=== PATIENT | female | born 1955 | race Caucasian/White ===

== ENCOUNTER 2016-10-01 19:56 | Outpatient (CLI) | payer OTHER | END 2016-10-01 19:57 | disposition EMS.NT | LOC: EMS 19:56 | PROVIDERS: ATTEND Surgery | DX: R03.0 Elevated blood-pressure reading, without diagnosis of hypertension (principal) ==

== ENCOUNTER 2016-10-01 20:34 | Emergency (ER) | payer OTHER ==
--- NOTE | 2016-10-01 21:31 | ED Physician Documentation ---
History of Present Illness - Stated complaint Stated Complaint: BLOOD PRESSURE - Chief complaint Chief Complaint: Cardiac - History obtained from History obtained from: Patient, Family - History of Present Illness Timing: Unknown Pain level max: 0 Pain level now: 0 Improved by: nothing Worsened by: stress - Additonal information Additional information: Patient is a 61-year-old female who recently moved here from [facility]. She states she has been under a lot of stress at home recently. Has noticed her blood pressures have been more elevated than usual. She denies any symptoms. No headache, no dizziness, no focal neurological deficits, no visual changes, no chest pain, no shortness of breath. Review of Systems Constitutional: denies: Fever, Chills Eyes: denies: Decreased vision, Photophobia Throat: denies: Sore throat Cardiac: denies: Chest pain / pressure, Palpitations Respiratory: denies: Cough, Hemoptysis GI: denies: Nausea, Vomiting Skin: denies: Rash Musculoskeletal: denies: Neck pain, Back pain Neurologic: denies: Focal weakness, Numbness, Confused, Altered mental status, Headache PD PAST MEDICAL HISTORY - Past Medical History Past Medical History: Yes Cardiovascular: Hypertension Endocrine/Autoimmune: HyPOthyroidism - Present Medications Home Medications: Ambulatory Orders Medication Instructions Recorded Confirmed Cholestyramine [Questran] 4 gm PO DAILY 10/01/16 10/01/16 Irbesartan 150 mg PO DAILY 10/01/16 10/01/16 Levothyroxine Sodium [Synthroid] 100 mcg PO DAILY 10/01/16 10/01/16 Sertraline HCl 100 mg PO DAILY 10/01/16 10/01/16 Tolterodine Tartrate [Tolterodine 4 mg PO DAILY 10/01/16 10/01/16 Tartrate ER] hydroCHLOROthiazide [Hydrodiuril] 25 mg PO DAILY 10/01/16 10/01/16 - Allergies Allergies/Adverse Reactions: Allergies Allergy/AdvReac Type Severity Reaction Status Date / Time morphine Allergy Anaphylaxis Verified 10/01/16 20:48 codeine AdvReac Nausea Verified 10/01/16 20:48 - Social History Does the pt smoke?: No Smoking Status: Never smoker PD ED PE NORMAL - Vitals Vital signs reviewed: Yes - General General: Alert and oriented X 3, No acute distress, Well developed/nourished - HEENT HEENT: PERRL, EOMI, Moist mucous membranes - Neck Neck: Supple, no meningeal sign - Cardiac Cardiac: RRR, No murmur, Strong equal pulses - Respiratory Respiratory: No respiratory distress, Clear bilaterally - Abdomen Abdomen: Soft, Non tender, Non distended - Derm Derm: Warm and dry - Extremities Extremities: No edema - Neuro Neuro: Alert and oriented X 3, 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 We will have her follow-up with her doctor for further evaluation and care of her blood pressure. Patient and are comfortable with this plan. Patient and family counseled regarding signs and symptoms for which I believe and urgent re-evaluation would be necessary. Patient with good understanding of and agreement to plan and is comfortable going home at this time This document was made in part using voice recognition software. While efforts are made to proofread this document, sound alike and grammatical errors may occur. Departure - Departure Disposition: 01 Home, Self Care Clinical Impression: Hypertension Qualifiers: Hypertension type: essential hypertension Qualified Code(s): I10 - Essential ( primary) hypertension Condition: Good Instructions: ED HTN Established Follow-Up: Flores Caldwell MD [Primary Care Provider] - Within 1 week Comments: Return if you worsen. Return if you develop chest pain, shortness of breath, weakness, visual changes. Keep a log of your blood pressures at home, take it once a day and share this with your doctor. Discharge Date/Time: 10/01/16 21:50
[2016-10-01 21:50] VITALS: BP 173/109
== END 2016-10-01 21:50 | disposition home or self-care (01) ==
LOC: ED 20:34
DX: I10 Essential (primary) hypertension (principal)
CPT/HCPCS: 99282; 99283

== ENCOUNTER 2016-10-28 08:08 | Outpatient (CLI) | payer OTHER ==
--- NOTE | 2016-10-28 16:08 | DEXA Report ---
DEXA SCAN: 10/28/2016 CLINICAL INDICATION: Postmenopausal osteoporosis. TECHNIQUE: Dual energy x-ray absorptiometry (DXA) was performed on a DJZ system. Regions measured are the AP spine, femoral neck, and, if needed, forearm. COMPARISON: None. In accordance with the International Society for Clinical Densitometry (ISCD) guidelines, data from previous exams may be reanalyzed using current recommendations and techniques. This is done to allow a more accurate basis for comparison with the current study. FINDINGS: The data for the lumbar spine is as follows: REGION BMD (g/cm/cm) T-SCORE Z-SCORE L1 0.900 -1.9 -1.7 L2 0.906 -2.5 -2.2 L3 0.929 -2.3 -2.0 L4 1.085 -1.0 -0.7 TOTAL 0.963 -1.8 -1.6 NOTE: All evaluable vertebrae are used for classification. The data for the hip is as follows: REGION BMD (g/cm/cm) T-SCORE Z-SCORE Neck 0.731 -2.2 -1.6 TOTAL 0.653 -2.8 -2.6 NOTE: The femoral neck or total proximal femur, whichever is lowest, is used for classification. * Denotes significant change at the 95% confidence level. Denotes dissimilar scan types or analysis methods. IMPRESSION: THE WHO CLASSIFICATION BASED ON THE INTERNATIONAL REFERENCE STANDARD IS OSTEOPOROSIS. THE FRACTURE RISK IS HIGH. RECOMMENDATION: Patients with diagnosis of osteoporosis or osteopenia should have regular bone mineral density assessment. For those eligible for Medicare, routine testing is allowed once every 2 years. Testing frequency can be increased for patients who have rapidly progressing disease or for those who are receiving medical therapy to restore bone mass. COMMENT: World Health Organization (WHO) definitions for osteoporosis and osteopenia: NORMAL BMD: T-score at -1.0 or higher, fracture risk is low. OSTEOPENIA BMD: T-score between -1.0 and -2.5, fracture risk is increased. OSTEOPOROSIS BMD: T-score at -2.5 or lower, fracture risk high. National Osteoporosis Foundation recommends: 1. Obtain adequate dietary calcium (at least 1200 mg per day) and vitamin D (400 -800 international units per day). 2. Participate, as appropriate, in regular weightbearing and muscle- strengthening exercise. 3. Avoid tobacco use and reduce alcohol and caffeine intake. 4. For more detailed information see the website at www.NOF.org. MTDD
== END 2016-10-28 08:09 | disposition home or self-care (01) ==
LOC: DI 08:08
PROVIDERS: ATTEND Internal Medicine
DX: M81.0 Age-related osteoporosis without current pathological fracture (principal)
CPT/HCPCS: 77080

== ENCOUNTER 2016-10-28 08:09 | Outpatient (CLI) | payer OTHER ==
--- NOTE | 2016-10-28 12:56 | Ultrasound Report ---
AORTA SCREEN: 10/28/2016 CLINICAL INDICATION: Hypertension. TECHNIQUE: Real-time scanning was performed with enrollment eligibility representative static images obtained. FINDINGS: The abdominal aorta is normal in caliber, measuring 2.4 cm proximally, 2.6 cm in the mid p ortion, and 1.9 cm distally. The iliacs are not dilated. No free fluid is present. IMPRESSION: NO EVIDENCE OF ABDOMINAL AORTIC ANEURYSM. JOB #: [id number] EXT JOB #:[id number]
== END 2016-10-28 08:10 | disposition home or self-care (01) ==
LOC: DI 08:09
PROVIDERS: ATTEND Internal Medicine
DX: Z13.6 Encounter for screening for cardiovascular disorders (principal); I10 Essential (primary) hypertension; M81.0 Age-related osteoporosis without current pathological fracture
CPT/HCPCS: 76706; 77080

== ENCOUNTER 2017-08-18 10:55 | Outpatient (CLI) | payer OTHER ==
--- NOTE | 2017-08-23 12:00 | Mammography Report ---
DIGITAL SCREENING MAMMOGRAPHY: 08/18/2017 HISTORY: No history of breast surgery, hormone therapy, family or personal history of breast cancer. COMPARISON: 04/25/2013 and 03/12/2010. TECHNIQUE: Bilateral digital CC and MLO projections are performed. FINDINGS: There are scattered fibroglandular densities. In the upper outer quadrant of the right breast, there are some loosely clustered faint microcalcifications for which magnification views are suggested. In the 12 o'clock position of the left breast, there are 2-3 microcalcifications with an area of possible architectural distortion for which spot compression and magnification views are suggested. No skin thickening noted. IMPRESSION: ADDITIONAL VIEWS OF BOTH BREASTS ARE SUGGESTED DETAILED ABOVE. BI-RADS CATEGORY 0 - NEEDS ADDITIONAL IMAGING EVALUATION. STANDARD QUALIFYING STATEMENTS: 1. This examination was reviewed with the aid of Computer-Aided Detection (CAD). 2. A negative or benign imaging report should not delay biopsy if clinically suspicious findings are present. Consider surgical consultation if warranted. More than 5% of cancers are not identified by imaging. 3. Dense breasts may obscure an underlying neoplasm. TD: 08/23/2017 11:59
== END 2017-08-18 10:56 | disposition home or self-care (01) ==
LOC: DI 10:55
PROVIDERS: ATTEND Internal Medicine
DX: Z12.31 Encounter for screening mammogram for malignant neoplasm of breast (principal); R92.0 Mammographic microcalcification found on diagnostic imaging of breast; Z80.3 Family history of malignant neoplasm of breast
CPT/HCPCS: 77067

== ENCOUNTER 2017-09-14 10:43 | Outpatient (CLI) | payer OTHER ==
--- NOTE | 2017-09-14 14:17 | Mammography Report ---
DIAGNOSTIC DIGITAL BILATERAL MAMMOGRAM: 09/14/2017. CLINICAL INDICATION: Calcifications and possible architectural distortion. TECHNIQUE: Bilateral true lateral and spot magnification views. COMPARISON: 08/18/2017, 04/25/2013, 03/12/2010. FINDINGS: The breasts demonstrate heterogeneously dense fibroglandular parenchyma bilaterally. The calcifications in the left upper central breast are a mix of punctate calcifications and milk of calcium. The possible architectural distortion seen on screening dissipates on additional compression. No underlying mass lesion or architectural distortion persists. The calcifications in the right upper outer quadrant are punctate on spot magnification views. No significant pleomorphism is appreciated on either side. IMPRESSION: PROBABLE BENIGN CALCIFICATIONS. RESOLUTION OF THE POSSIBLE ARCHITECTURAL DISTORTION ON THE LEFT BREAST. RECOMMENDATION: Diagnostic bilateral mammogram in 6 months, to assure stability. BIRADS CATEGORY 3 - PROBABLE BENIGN FINDINGS. STANDARD QUALIFYING STATEMENTS 1. This examination was reviewed with the aid of Computed Aided Detection (CAD). 2. A negative x-ray report should not delay biopsy if a dominant or clinically suspicious mass is present. More than 5% of cancers are not identified by x-ray. 3. Dense breasts may obscure an underlying neoplasm. TD: 09/14/2017 14:16 FLORENCIO
== END 2017-09-14 10:44 | disposition home or self-care (01) ==
LOC: DI 10:43
PROVIDERS: ATTEND Internal Medicine
DX: R92.2 Inconclusive mammogram (principal)
CPT/HCPCS: 77066

== ENCOUNTER 2017-12-15 17:07 | Emergency (ER) | payer OTHER ==
[2017-12-15 17:31] LABS: BILIRUBIN,URINE NEGATIVE (NEGATIVE); GLUCOSE, URINE (UA) NEGATIVE (NEGATIVE); KETONES,URINE (UA) NEGATIVE (NEGATIVE); LEUKOCYTE ESTERASE, URINE NEGATIVE (NEGATIVE); NITRITE,URINE NEGATIVE (NEGATIVE); OCCULT BLOOD,URINE NEGATIVE (NEGATIVE); PROTEIN,URINE NEGATIVE (NEGATIVE); UROBILINOGEN,URINE 0.2 (NORMAL) E.U./dL (NORMAL)
[2017-12-15 17:40] LABS: CLARITY,URINE CLEAR (CLEAR)
--- NOTE | 2017-12-15 17:48 | ED Physician Documentation ---
History of Present Illness - Stated complaint Stated Complaint: GLF - Chief complaint Chief Complaint: General - History obtained from History obtained from: Patient - History of Present Illness Timing: Other (About 4 days ago she tripped over her cat and hit multiple pieces of furniture on the way down. She did hit her head but has no headache, though spot this persistently bothering her is the right flank radiating to the right upper quadrant which is actually worsening. She has noted no hematuria.) Review of Systems Constitutional: denies: Fever, Chills Cardiac: denies: Chest pain / pressure, Pedal edema, Calf pain Respiratory: denies: Dyspnea, Cough, Hemoptysis, Wheezing GI: denies: Nausea, Diarrhea : denies: Dysuria, Frequency, Hesitancy, Incontinent PD PAST MEDICAL HISTORY - Past Medical History Cardiovascular: Hypertension Endocrine/Autoimmune: HyPOthyroidism - Present Medications Home Medications: Ambulatory Orders Medication Instructions Recorded Confirmed Irbesartan 150 mg PO DAILY 10/01/16 10/01/16 Levothyroxine Sodium [Synthroid] 100 mcg PO DAILY 10/01/16 10/01/16 Sertraline HCl 100 mg PO DAILY 10/01/16 10/01/16 Tolterodine Tartrate [Tolterodine 4 mg PO DAILY 10/01/16 10/01/16 Tartrate ER] hydroCHLOROthiazide [Hydrodiuril] 25 mg PO DAILY 10/01/16 10/01/16 - Allergies Allergies/Adverse Reactions: Allergies Allergy/AdvReac Type Severity Reaction Status Date / Time morphine Allergy Anaphylaxis Verified 12/15/17 17:15 codeine AdvReac Nausea Verified 12/15/17 17:15 - Social History Does the pt smoke?: No Smoking Status: Never smoker PD ED PE NORMAL - Vitals Vital signs reviewed: Yes - General General: Alert and oriented X 3, No acute distress - Neck Neck: Supple, no meningeal sign, No bony TTP - Cardiac Cardiac: RRR, No murmur - Respiratory Respiratory: No respiratory distress, Clear bilaterally - Abdomen Abdomen: Non tender - Back Back: Other (She is tender with bruising over the right CVA with some very low rib tenderness on the right, around #12. The area of bruise is about the size of the palm.) - Neuro Neuro: Alert and oriented X 3, Normal speech Results - Vitals Vitals: Vital Signs - 24 hr 12/15/17 12/15/17 17:08 18:06 Temperature 36.2 C L Heart Rate 75 51 L Respiratory 18 18 Rate Blood Pressure 123/78 68/38 L O2 Saturation 97 98 Oxygen O2 Source Room air - Labs Labs: Laboratory Tests 12/15/17 12/15/17 12/15/17 17:17 18:02 18:02 WBC 7.3 RBC 4.21 Hgb 13.5 Hct 40.0 MCV 95.0 MCH 32.0 H MCHC 33.7 RDW 12.9 Plt Count 291 MPV 9.1 Neut # (Auto) 3.8 Lymph # (Auto) 2.8 [place] # (Auto) 0.6 Eos # (Auto) 0.1 Baso # (Auto) 0.0 Absolute Nucleated RBC 0.00 Nucleated RBC % 0.0 Sodium 137 Potassium 3.6 Chloride 103 Carbon Dioxide 27 Anion Gap 7.0 BUN 20 Creatinine 0.7 Estimated GFR (MDRD) 85 L Glucose 97 Calcium 9.4 Total Bilirubin 0.8 AST 23 ALT 25 Alkaline Phosphatase 113 Total Protein 7.3 Albumin 4.2 Globulin 3.1 Albumin/Globulin Ratio 1.4 Lipase 24 Urine Color YELLOW Urine Clarity CLEAR Urine pH 6.0 Ur Specific [place] 1.010 Urine Protein NEGATIVE Urine Glucose (UA) NEGATIVE Urine Ketones NEGATIVE Urine Occult Blood NEGATIVE Urine Nitrite NEGATIVE Urine Bilirubin NEGATIVE Urine Urobilinogen 0.2 (NORMAL) Ur Leukocyte Esterase NEGATIVE Ur Microscopic Review NOT INDICATED Urine Culture Comments NOT INDICATED - Rads (name of study) CT A/P Radiology: EMP read contemporaneously (Some bruising, but no internal injuries.) PD MEDICAL DECISION MAKING - ED course ED course: Note made of a single blood pressure documented at 68/38, however with normal labs and this was not repeated it seems like a spurious value. - Sepsis Event Vital Signs: Vital Signs - 24 hr 12/15/17 12/15/17 17:08 18:06 Temperature 36.2 C L Heart Rate 75 51 L Respiratory 18 18 Rate Blood Pressure 123/78 68/38 L O2 Saturation 97 98 Oxygen O2 Source Room air Departure - Departure Disposition: 01 Home, Self Care Clinical Impression: Contusion of flank Qualifiers: Encounter type: initial encounter Qualified Code(s): S30.1XXA - Contusion of abdominal wall, initial encounter Condition: Good Record reviewed to determine appropriate education?: Yes Instructions: ED Contusion Soft Tissue Comments: Waylonenol or ibuprofen as needed for pain, return if worsening or if new symptoms develop.
[2017-12-15 18:24] LABS: BASOPHILS % (AUTO) 0.5 %; EOSINOPHILS # (AUTO) 0.1 10^3/uL (0.0-0.7); EOSINOPHILS % (AUTO) 1.3 %; HGB - HEMOGLOBIN 13.5 g/dL (12.0-16.0); LYMPHOCYTES # (AUTO) 2.8 10^3/uL (1.5-3.5); LYMPHOCYTES % (AUTO) 38.6 %; MEAN CORPUSCULAR HGB CONC 33.7 g/dL (32.0-36.0); MEAN PLATELET VOLUME 9.1 fL (7.9-10.8); MONOCYTES # (AUTO) 0.6 10^3/uL (0.0-1.0); MONOCYTES % (AUTO) 7.6 %; NEUTROPHILS # (AUTO) 3.8 10^3/uL (1.5-6.6); PLT - PLATELET COUNT 291 10^3/uL (130-450); RED BLOOD COUNT 4.21 10^6/uL (4.20-5.40); RED CELL DISTRIBUTION WIDTH 12.9 % (12.0-15.0); WHITE BLOOD COUNT 7.3 x10^3/uL (4.8-10.8)
[2017-12-15] MEDS ORDERED: IOPAMIDOL-300 100 ML VIAL ONE (18:30)
[2017-12-15 18:34] LABS: ALBUMIN 4.2 g/dL (3.2-5.5); ALBUMIN/GLOBULIN RATIO 1.4 (1.0-2.2); BILIRUBIN,TOTAL 0.8 mg/dL (0.2-1.0); CALCIUM 9.4 mg/dL (8.5-10.3); CREATININE 0.7 mg/dL (0.4-1.0); TOTAL PROTEIN 7.3 g/dL (6.7-8.2)
[2017-12-15] MEDS ORDERED: IOPAMIDOL-300 100 ML VIAL IVP ONE (19:32)
--- NOTE | 2017-12-15 20:04 | CT Report ---
Procedure Date: 12/15/2017 Accession Number: [id number] / [id number] Procedure: CT - Abdomen/Pelvis W/ CPT Code: FULL RESULT: EXAM: CT ABDOMEN AND PELVIS EXAM DATE: 12/15/2017 07:30 PM. CLINICAL HISTORY: IV only, R flank trauma, ?retro hematoma, ?rib frx. Fall 5 nights ago. COMPARISONS: Retroperitoneal ultrasound 10/28/2016. TECHNIQUE: Routine helical CT imaging was performed through the abdomen and pelvis. IV contrast: 100 ML ISOVUE 300. Enteric contrast: No. Reconstructions: Coronal and sagittal. In accordance with CT protocol optimization, one or more of the following dose reduction techniques were utilized for this exam: automated exposure control, adjustment of mA and/or KV based on patient size, or use of iterative reconstructive technique. FINDINGS: Lung Bases: Unremarkable. Liver: 0.6 cm circumscribed rounded hypodensity suggesting a cyst in the lateral left hepatic lobe. Otherwise normal. Gallbladder/Bile Ducts: Unremarkable. Spleen: Normal. Pancreas: Normal. Adrenal Glands: Normal. Kidneys: 1.6 cm simple cyst lateral cortex lower pole right kidney. Left kidney unremarkable. No hydronephrosis. No perinephric fat stranding. Renal enhancement symmetric. No gross stones. Peritoneal Cavity/Bowel: Prominent fat in the inferior aspect of the posterior mediastinum. Unopacified stomach and small bowel are nondistended. Appendix is normal. There is a small amount of formed stool scattered in colon. There is no lymphadenopathy, ascites, or in the peritoneum. Pelvic Organs: Small volume bladder. Uterus surgically absent. No adnexal masses are identified. Vasculature: No aneurysms or other significant abnormality. Bones: 3 lag screws through the left femoral neck. Moderate degenerative disk disease L5-S1. Mild right L4-L5 and bilateral L5-S1 facet osteoarthritis. No fracture is identified. Visualized lower right ribs are intact. Other: There is minimal subcutaneous bruising over the upper right flank. IMPRESSION: 1. Minimal subcutaneous bruising over the upper right flank. 2. No fracture is identified. 3. No evidence of internal injury in the lower chest, abdomen, or pelvis. RADIA
[2017-12-15 20:22] VITALS: BP 149/86
== END 2017-12-15 20:22 | disposition home or self-care (01) ==
LOC: ED 17:07
DX: S30.1XXA Contusion of abdominal wall, initial encounter (principal); W01.190A Fall on same level from slipping, tripping and stumbling with subsequent striking against furniture, initial encounter; I10 Essential (primary) hypertension; E03.9 Hypothyroidism, unspecified
CPT/HCPCS: 36415; 74177; 80053; 81003; 83690; 85025; 99283; Q9967; 81001; 87086

== ENCOUNTER 2020-08-01 08:00 | Outpatient (CLI) | payer MEDICARE, OTHER ==
[2020-08-01 18:02] LABS: BASOPHILS % (AUTO) 0.4 %; EOSINOPHILS # (AUTO) 0.1 10^3/uL (0.0-0.7); EOSINOPHILS % (AUTO) 1.2 %; HCT - HEMATOCRIT 42.5 % (37.0-47.0); HGB - HEMOGLOBIN 13.7 g/dL (12.0-16.0); LYMPHOCYTES # (AUTO) 2.3 10^3/uL (1.5-3.5); LYMPHOCYTES % (AUTO) 40.3 %; MEAN CORPUSCULAR HEMOGLOBIN 31.4 pg (27.0-31.0); MEAN CORPUSCULAR HGB CONC 32.2 g/dL (32.0-36.0); MEAN CORPUSCULAR VOLUME 97.3 fL (81.0-99.0); MONOCYTES # (AUTO) 0.5 10^3/uL (0.0-1.0); MONOCYTES % (AUTO) 9.2 %; NEUTROPHILS # (AUTO) 2.7 10^3/uL (1.5-6.6); NEUTROPHILS % (AUTO) 48.7 %; PLT - PLATELET COUNT 329 10^3/uL (130-450); RED BLOOD COUNT 4.37 10^6/uL (4.20-5.40); RED CELL DISTRIBUTION WIDTH 13.1 % (12.0-15.0); WHITE BLOOD COUNT 5.6 x10^3/uL (4.8-10.8)
[2020-08-01 18:23] LABS: ALBUMIN 4.4 g/dL (3.2-5.5); ALBUMIN/GLOBULIN RATIO 1.7 (1.0-2.2); ALKALINE PHOSPHATASE 70 IU/L (42-121); ALT ALANINE AMINOTRANSFERASE 13 IU/L (10-60); AST ASPARTATE AMINOTRANSFERASE 16 IU/L (10-42); BILIRUBIN,TOTAL 0.6 mg/dL (0.2-1.0); BUN - BLOOD UREA NITROGEN 12 mg/dL (6-20); CALCIUM 9.4 mg/dL (8.5-10.3); CARBON DIOXIDE - CO2 26 mmol/L (21-32); CHLORIDE 99 mmol/L (101-111); CHOL/HDL RATIO 2.8 (<4.4); CHOLESTEROL 233 mg/dL; CREATININE 0.7 mg/dL (0.4-1.0); GFR - MDRD 84 (>89); GLUCOSE 94 mg/dL (70-100); HDL CHOLESTEROL 82 mg/dL; LDL CHOLESTEROL,CALCULATED 133 mg/dL; LDL/HDL RATIO 1.6 (<4.4); POTASSIUM 4.2 mmol/L (3.5-5.0); SODIUM 139 mmol/L (135-145); TRIGLYCERIDES 90 mg/dL; VLDL CHOLESTEROL 18 mg/dL
[2020-08-01 18:29] LABS: THYROID STIMULATING HORMONE 2.37 uIU/mL (0.34-5.60)
== END 2020-08-01 08:01 | disposition home or self-care (01) ==
LOC: LAB.WCP 08:00
PROVIDERS: ATTEND Physician Assistant Medical
DX: I10 Essential (primary) hypertension (principal); E03.9 Hypothyroidism, unspecified
CPT/HCPCS: 36415; 80053; 80061; 83721; 84443; 85025

== ENCOUNTER 2020-11-10 10:16 | Outpatient (CLI) | payer MEDICARE, OTHER ==
--- NOTE | 2020-11-11 14:26 | Mammography Report ---
BILATERAL DIGITAL DIAGNOSTIC MAMMOGRAM 3D/2D: 11/10/2020 CLINICAL: Patient returns for 6 month follow up on bilaeral breast calcifications. Comparison is made to exams dated: 09/14/2017 mammogram, 08/18/2017 mammogram, 04/25/2013 mammogram, an d 03/12/2010 mammogram - [facility]. The tissue of both breasts is heterogeneously dense. This may lower the sensitivity of mammography. There are stable benign regional fine calcifications in the left breast at 12 o'clock middle depth. No definite associated architectural distortion. No other significant masses, calcifications, or other findings are seen in either breast. IMPRESSION: BENIGN There is no mammographic evidence of malignancy. A 1 year screening mammogram is recommended. This exam was interpreted at Station ID: [id number]. NOTE: For mammograms, a report in lay terms will be sent to the patient. Approximately 15% of breast malignancies will not be visualized mammographically. In the management of a palpable breast mass, a negative mammogram must not discourage biopsy of a clinically suspicious lesion. Electronically Signed By: Trever Castro M.D. ddp/:11/10/2020 11:23:41 ACR BI-RADS Category 2: Benign Finding(s) 3342F PARENCHYMAL PATTERN: (D) - The breast(s) demonstrate(s) heterogeneously dense fibroglandular jef gutierrez. BI-RADS CATEGORY: (2) - 2 RECOMMENDATION: (ANNUAL) - Recommend routine annual screening mammography. [id number] 1 year screening LATERALITY: (B)
== END 2020-11-10 10:17 | disposition home or self-care (01) ==
LOC: DI 10:16
PROVIDERS: ATTEND Physician Assistant Medical
DX: R92.8 Other abnormal and inconclusive findings on diagnostic imaging of breast (principal)

== ENCOUNTER 2023-05-02 11:25 | Outpatient (CLI) | payer MEDICARE, OTHER ==
--- NOTE | 2023-05-03 09:13 | Mammography Report ---
BILATERAL DIGITAL SCREENING MAMMOGRAM 3D/2D: 05/02/2023 CLINICAL: Routine screening. Comparison is made to exams dated: 11/10/2020 mammogram, 09/14/2017 mammogram, and 08/18/2017 mammogram - [facility]. Both breasts are heterogeneously dense, which may obscure small masses (category c / 51-75% glandular tissue). There are benign calcifications in both breasts. No significant masses, calcifications, or other findings are seen in either breast. There has been no significant interval change. IMPRESSION: BENIGN There is no mammographic evidence of malignancy. A 1 year screening mammogram is recommended. Based on the Tyrer Cuzick model (a risk assessment model) the patients lifetime risk is 6.8% and her 10 year risk is 3.6%. According to the ACR, ACS, and NCCN guidelines, an annual breast MRI exam shaji g with mammogram is recommended if the patients lifetime risk is 20% or greater. This exam was interpreted at Station ID: [id number]. NOTE: For mammograms, a report in lay terms will be sent to the patient. Approximately 15% of breast malignancies will not be visualized mammographically. In the management of a palpable breast mass, a negative mammogram must not discourage biopsy of a clinically suspicious lesion. Electronically Signed By: Slime [email or web address]:05/02/2023 16:45:47 letter sent: No_Letter ACR BI-RADS Category 2: Benign Finding(s) 3342F PARENCHYMAL PATTERN: (D) - The breast(s) demonstrate(s) heterogeneously dense fibroglandular jef gutierrez. BI-RADS CATEGORY: (2) - 2 Mammogram [id number] 1 year screening LATERALITY: (B)
== END 2023-05-02 11:26 | disposition home or self-care (01) ==
LOC: DI 11:25
DX: Z12.31 Encounter for screening mammogram for malignant neoplasm of breast (principal); R92.333 Mammographic heterogeneous density, bilateral breasts

== ENCOUNTER 2023-05-10 10:40 | Outpatient (CLI) | payer MEDICARE, OTHER ==
[2023-05-10 12:17] LABS: BASOPHILS % (AUTO) 0.5 %; EOSINOPHILS # (AUTO) 0.1 10^3/uL (0.0-0.7); EOSINOPHILS % (AUTO) 1.9 %; HCT - HEMATOCRIT 40.4 % (37.0-47.0); HGB - HEMOGLOBIN 13.3 g/dL (12.0-16.0); LYMPHOCYTES # (AUTO) 2.1 10^3/uL (1.5-3.5); LYMPHOCYTES % (AUTO) 32.6 %; MEAN CORPUSCULAR HEMOGLOBIN 30.6 pg (27.0-31.0); MEAN CORPUSCULAR HGB CONC 32.9 g/dL (32.0-36.0); MEAN CORPUSCULAR VOLUME 92.9 fL (81.0-99.0); MONOCYTES # (AUTO) 0.5 10^3/uL (0.0-1.0); MONOCYTES % (AUTO) 7.2 %; NEUTROPHILS # (AUTO) 3.7 10^3/uL (1.5-6.6); NEUTROPHILS % (AUTO) 57.5 %; PLT - PLATELET COUNT 342 10^3/uL (130-450); RED BLOOD COUNT 4.35 10^6/uL (4.20-5.40); RED CELL DISTRIBUTION WIDTH 11.9 % (12.0-15.0); WHITE BLOOD COUNT 6.4 x10^3/uL (4.8-10.8)
[2023-05-10 12:42] LABS: ALBUMIN 4.3 g/dL (3.2-5.5); ALBUMIN/GLOBULIN RATIO 1.7 (1.0-2.2); ALKALINE PHOSPHATASE 72 IU/L (42-121); ALT ALANINE AMINOTRANSFERASE 14 IU/L (10-60); AST ASPARTATE AMINOTRANSFERASE 18 IU/L (10-42); BILIRUBIN,TOTAL 0.5 mg/dL (0.2-1.0); BUN - BLOOD UREA NITROGEN 12 mg/dL (6-20); CALCIUM 9.7 mg/dL (8.5-10.3); CARBON DIOXIDE - CO2 30 mmol/L (21-32); CHLORIDE 105 mmol/L (101-111); CHOL/HDL RATIO 2.8 (<4.4); CHOLESTEROL 203 mg/dL; CREATININE 0.7 mg/dL (0.6-1.3); GFR - MDRD 83 (>89); GLUCOSE 93 mg/dL (74-104); HDL CHOLESTEROL 72 mg/dL; LDL CHOLESTEROL,CALCULATED 112 mg/dL; LDL/HDL RATIO 1.6 (<4.4); POTASSIUM 4.1 mmol/L (3.5-4.5); SODIUM 141 mmol/L (135-145); TOTAL PROTEIN 6.8 g/dL (6.4-8.9); TRIGLYCERIDES 94 mg/dL (48-352); VLDL CHOLESTEROL 19 mg/dL
[2023-05-10 12:48] LABS: THYROID STIMULATING HORMONE 3.18 uIU/mL (0.34-5.60)
== END 2023-05-10 10:41 | disposition home or self-care (01) ==
LOC: LAB.N 10:40
PROVIDERS: ATTEND Physician Assistant Medical
DX: I10 Essential (primary) hypertension (principal); Z90.89 Acquired absence of other organs
CPT/HCPCS: 36415; 80053; 80061; 83721; 84443; 85025